=== PATIENT | female | born 1945 | race Caucasian/White ===

== ENCOUNTER → 2017-01-03 | Outpatient (CLI) | payer MEDICARE, BC ==
--- NOTE | 2017-01-07 12:18 | BD ---
EXAMINATION TYPE: MG DEXA axial skeleton. DATE OF EXAM: 01/03/2017 COMPARISON: 11.06.2012 CLINICAL HISTORY: Z78.0 POST MENOPAUSAL WITHOUT HRT Height: 64.5 Weight: 153 FRAX RISK QUESTIONS: Alcohol (3 or more units per day): NO Family History (Parent hip fracture): UNKNOWN Glucocorticoids (More than 3mos): YES (Ex: prednisone, prednisolone, methylprednisolone, dexamethasone, and hydrocortisone). History of Fracture in Adulthood: NO Secondary Osteoporosis: NO 1. Type 1 Diabetes: NO 2. Hyperthyroidism: NO 3. Menopause before 45: NO 4. Malnutrition: NO 5. Chronic liver disease: NO Rheumatoid Arthritis: NO Current Tobacco Use: NO RISK FACTORS HISTORY OF: Surgery to BOTH HIPS....THR BILAT When: AGE 48, AGE 58, Family History of Osteoporosis: NONE KNOWN Active: YES Diet low in dairy products/other sources of calcium: POSSIBLY A BIT LOW Postmenopausal woman: HYST AT 28 YRS, ONE OVARY LEFT, HORMONE CHANGES IN HER 50'S Lost more than 2 inches in height since high school: NO Hyperparathyroidism: NO Adrenal Insufficiency: NO MEDICATIONS: Prednisone or other steroids: INHALER, ASTHMA, ALLERGIES SYMBACORT How Lon YRS Additional Medications: BP MEDS, MULTIVIT WITH VIT D, REFLUX MEDS Additional History: REFLUX, HYPERTENSION, OSTEOARTHRITIS, HX OF BILAT THR'S EXAM MEASUREMENTS: Bone mineral densitometry was performed using the [employer] System. Bone mineral density as measured about the Lumbar spine is: ----- L1-L4(G/cm2): 1.224 T Score Values are as follows: ----- L1: -0.3 ----- L2: -0.8 ----- L3: 0.6 ----- L4: 1.5 ----- L1-L4: 0.4 Bone mineral density has: Decreased -1.9% since study of: 11.06.2012 PT HAS BILATERAL THR'S NO FRAX....NO HIPS SCANNED IMPRESSION: Normal (Values between +1 and -1 indicate normal bone mass). Consider repeating this study in 5 year s or sooner if there is some new clinical indication. FOR HER LUMBAR SPINE NOTE: T-SCORE=SD OF THE YOUNG ADULT MEAN.
--- NOTE | 2017-01-08 07:15 | MM ---
Reason for exam: screening (asymptomatic). Last mammogram was performed 1 year and 4 months ago. History: Patient is postmenopausal. Family history of breast cancer in maternal aunt. Physical Findings: A clinical breast exam by your physician is recommended on an annual basis and results should be correlated with mammographic findings. MG 3D Screening Mammo W/Cad Bilateral CC and MLO view(s) were taken. Prior study comparison: August 23, 2015, bilateral MG 3d screening mammo w/cad. November 06, 2012, bilateral digital screening mammo w/CAD. The breast tissue is heterogeneously dense. This may lower the sensitivity of mammography. No significant changes when compared with prior studies. ASSESSMENT: Benign, BI-RAD 2 RECOMMENDATION: Routine screening mammogram of both breasts in 1 year.
== END | disposition home or self-care (01) ==
LOC: RADMAMWWP 09:06
PROVIDERS: ATTEND Internal Medicine
DX: Z12.31 Encounter for screening mammogram for malignant neoplasm of breast (principal); Z78.0 Asymptomatic menopausal state
CPT/HCPCS: 77080; 77063; G0202

== ENCOUNTER → 2017-12-29 | Outpatient (CLI) | payer MEDICARE, BC ==
--- NOTE | 2017-12-30 12:40 | ECHOF ---
Referral Reason:I10 hypertension MEASUREMENTS -------- HEIGHT: 165.1 cm WEIGHT: 65.8 kg BP: 125/58 RVIDd: 2.7 cm (< 3.3) IVSd: 1.1 cm (0.6 - 1.1) LVIDd: 3.7 cm (3.9 - 5.3) LVPWd: 1.0 cm (0.6 - 1.1) IVSs: 1.5 cm LVIDs: 2.6 cm LVPWs: 1.4 cm LA Diam: 3.1 cm (2.7 - 3.8) LAESV Index (A-L): 17.10 ml/m Ao Diam: 2.8 cm (2.0 - 3.7) AV Cusp: 1.6 cm (1.5 - 2.6) MV EXCURSION: 14.056 mm (> 18.000) MV EF SLOPE: 41 mm/s (70 - 150) EPSS: 0.4 cm MV E Shane: 0.89 m/s MV DecT: 253 ms MV A Shane: 1.13 m/s MV E/A Ratio: 0.79 AV maxP.27 mmHg AV meanP.36 mmHg FINDINGS -------- Sinus rhythm. This was a technically good study. The left ventricular size is normal. There is borderline concentric left ventricular hypertrophy. Overall left ventricular systolic function is normal with, an EF between 60 - 65 %. The right ventricle is normal in size. Normal LA size by volume 22+/-6 ml/m2. The right atrium is normal in size. There is mild aortic valve sclerosis. There is mild aortic stenosis present. Peak/mean gradient a cross the Aortic Valve is 17.27mmHg / 7.36mmHg. The mitral valve leaflets are mildly thickened. There is trace to mild mitral regurgitation. The tricuspid valve appears structurally normal. Mild tricuspid regurgitation present. Trace/mild (physiologic) pulmonic regurgitation. The aortic root size is normal. Normal inferior vena cava with normal inspiratory collapse consistent with estimated right atrial pre ssure of 5 mmHg. There is no pericardial effusion. CONCLUSIONS -------- 1. Sinus rhythm. 2. This was a technically good study. 3. The left ventricular size is normal. 4. There is borderline concentric left ventricular hypertrophy. 5. Overall left ventricular systolic function is normal with, an EF between 60 - 65 %. 6. Normal LA size by volume 22+/-6 ml/m2. 7. There is mild aortic valve sclerosis. 8. There is mild aortic stenosis present. 9. Peak/mean gradient across the Aortic Valve is 17.27mmHg / 7.36mmHg. 10. The mitral valve leaflets are mildly thickened. 11. There is trace to mild mitral regurgitation. 12. The tricuspid valve appears structurally normal. 13. Mild tricuspid regurgitation present. 14. Trace/mild (physiologic) pulmonic regurgitation. 15. The aortic root size is normal. 16. Normal inferior vena cava with normal inspiratory collapse consistent with estimated right atrial pressure of 5 mmHg. 17. There is no pericardial effusion. CYTOPATHOLOGY TECHNOLOGIST: Anayeli Wilson RDCS
== END | disposition home or self-care (01) ==
LOC: RADECHMAIN 14:42
PROVIDERS: ATTEND Internal Medicine
DX: I07.1 Rheumatic tricuspid insufficiency (principal); I35.0 Nonrheumatic aortic (valve) stenosis; I05.9 Rheumatic mitral valve disease, unspecified; I38 Endocarditis, valve unspecified; I10 Essential (primary) hypertension
CPT/HCPCS: 93306

== ENCOUNTER 2018-01-28 08:43 | Day surgery (SDC) | payer MEDICARE, BC ==
[2018-01-26 15:11] VITALS: BMI 24.1
[~2018-01-28 08:43] MED LIST: HYDROmorphone 0.5 MG/0.5 ML SYRINGE IVP PRN; LACTATED RINGERS 1,000 ML IV SCH; LIDOCAINE 1% 20 ML VIAL (10MG/ML) FOR IV START INTRADERMA PRN
[2018-01-28 10:19] VITALS: TEMP 97.7
[2018-01-28] MEDS ORDERED: LIDOCAINE 1% INJ 10MG/ML (20 ML MDV) ONE (10:50)
[2018-01-28] MEDS ORDERED: PROPOFOL 10 MG/ML 20 ML VIAL IV ONE (10:50)
--- NOTE | 2018-01-28 11:10 | P.PCN ---
Date of Procedure: 01/28/18 Procedure(s) Performed: BRIEF HISTORY: Patient is a 72-year-old pleasant female, scheduled for an elective colonoscopy as a part of screening for colorectal neoplasia. PROCEDURE PERFORMED: Colonoscopy with biopsy. PREOPERATIVE DIAGNOSIS: Screening for colon cancer. IV sedation per Anesthesia. PROCEDURE: After informed consent was obtained, the patient, was brought into the endoscopy unit. IV sedation was administered by Anesthesia under continuous monitoring. Digital rectal examination was normal. Initially the Olympus CF- 160 flexible video colonoscope was then inserted in the rectum, gradually advanced into the cecum without any difficulty. Careful examination was performed as the scope was gradually being withdrawn. Ileocecal valve and the appendiceal orifice were visualized and appeared normal. Prep was excellent. Mucosa of the cecum was normal. In the ascending colon there was a 5 mm sessile polyp removed by cold biopsy. Rest of the ascending colon, transverse colon, descending colon, sigmoid colon, and rectum appeared normal. Retroflexion was performed in the rectum and no lesions were seen. The patient tolerated the procedure well. IMPRESSION: 5 mm ascending colon polyp status post removal by cold biopsy Scattered sigmoidal diverticulosis. . RECOMMENDATIONS: Findings of this examination were discussed with the patient as well as her family. She was advised to follow with the biopsy results. If the biopsy shows an adenoma, she can have a repeat colonoscopy in 5 years.
[2018-01-28 11:17] VITALS: RESP 18
[2018-01-28 11:26] VITALS: BP 118/59; PULSE 71
== END 2018-01-28 11:57 | disposition home or self-care (01) ==
LOC: ORWHC2ENDO 08:43
PROVIDERS: ATTEND Internal Medicine Gastroenterology
DX: Z12.11 Encounter for screening for malignant neoplasm of colon (principal); D12.2 Benign neoplasm of ascending colon; K57.30 Diverticulosis of large intestine without perforation or abscess without bleeding; K21.9 Gastro-esophageal reflux disease without esophagitis; Z79.82 Long term (current) use of aspirin; Z79.899 Other long term (current) drug therapy; I10 Essential (primary) hypertension; J45.909 Unspecified asthma, uncomplicated; Z79.51 Long term (current) use of inhaled steroids
CPT/HCPCS: 88305; 45380; J2001; J2704

== ENCOUNTER → 2018-06-08 | Outpatient (CLI) | payer MEDICARE ==
--- NOTE | 2018-06-08 17:39 | US ---
EXAMINATION TYPE: US carotid duplex BILAT DATE OF EXAM: 06/08/2018 COMPARISON: NONE CLINICAL HISTORY: R09.89 Left carotid bruit. EXAM MEASUREMENTS: RIGHT: Peak Systolic Velocity (PSV) cm/sec ----- Right CCA: 99.7 ----- Right ICA: 125.8 ----- Right ECA: 93.9 ICA/CCA ratio: 1.3 RIGHT: End Diastole cm/sec ----- Right CCA: 22.7 ----- Right ICA: 48.8 ----- Right ECA: 15.4 LEFT: Peak Systolic Velocity (PSV) cm/sec ----- Left CCA: 91.4 ----- Left ICA: 106.9 ----- Left ECA: 99.7 ICA/CCA ratio: 1.2 LEFT: End Diastole cm/sec ----- Left CCA: 30.5 ----- Left ICA: 26.7 ----- Left ECA: 17.2 VERTEBRALS (direction of flow): Right Vertebral: Antegrade Left Vertebral: Antegrade Rhythm: Normal Tortuous course to left internal carotid artery noted by technologist during real-time scanning. Mae scale images show no significant focal plaque at carotid bulb level bilaterally. Velocity measurement s in visualized portion of both internal carotid arteries is within normal limits. IMPRESSION: No hemodynamically significant stenosis is seen in either internal carotid artery. Criteria for Assigning % of Stenosis / Diameter reduction (Estimation based on the indirect measurements of the internal carotid artery velocities (ICA PSV). 1. Normal (no stenosis)=ICA PSV < 125 cm/s: ratio < 2.0: ICA EDV<40 cm/s. 2. Less than 50% stenosis=ICA PSV < 125 cm/s: ratio < 2.0: ICA EDV<40 cm/s. 3. 50 to 69% stenosis=ICA PSV of 125 to 230 cm/s: ration 2.0 ? 4.0: ICA EDV 40-100 cm/s. 4. Greater than 70% stenosis to near occlusion= ICA PSV > 230 cm/s: ratio > 4.0: ICA EDV > 100 cm/s. 5. Near occlusion= ICA PSV velocities may be low or undetectable: variable ratio and ICA EDV. 6. Total occlusion=unable to detect flow.
== END | disposition home or self-care (01) ==
LOC: RADUSWWP 15:11
PROVIDERS: ATTEND Internal Medicine
DX: R09.89 Other specified symptoms and signs involving the circulatory and respiratory systems (principal)
CPT/HCPCS: 93880

== ENCOUNTER → 2018-12-07 | Outpatient (CLI) | payer MEDICARE ==
[~2018-12-07] MED LIST changes: +DOBUTamine DRIP for NUC MED 500 MG in DEXTROSE/WATER 1 250ML.BAG IV ONE; -HYDROmorphone 0.5 MG/0.5 ML SYRINGE IVP PRN; -LACTATED RINGERS 1,000 ML IV SCH; -LIDOCAINE 1% 20 ML VIAL (10MG/ML) FOR IV START INTRADERMA PRN
--- NOTE | 2018-12-07 10:24 | P.STRESS ---
- Stress Test Note Stress Test Results/Findings: Exam Performed: dobutamine stress echo Exam Date: 12/07/18 Reason for Exam: CHEST PAIN / HTN Height: 5 ft 5 in Weight: 68.039 kg Protocol: DSE Stage: 3 Duration of Exercise: 6:30 Resting Heart Rate: 64 Resting Blood Pressure: 136/56 Maximum Achieved Heart Rate: 126 Maximum Achieved Blood Pressure: 154/54 85% PMHR: 125 100% PMHR: 147 METS: NA Technologist Comment: Stress Test Results/Findings: Baseline heart rate 64 beats a minute, Baseline blood pressure 136/56. Millimeters of mercury Twelve-lead ECG at baseline showed sinus rhythm with normal ST segments normal [place] narrow QRS Patient received dobutamine infusion per protocol up to 30 mics He can't 126 beats a minute peak blood pressure 154/54 mmHg There is an minimal upsloping ST depression of 0.5 mm no arrhythmias noted Baseline 2-D echo images showed normal LV systolic function The dobutamine there was a stepwise increment in overall LV contractility without development of any wall motion abnormalities @Recovery regional global LV systolic function remained normal Impression no ECG or echocardiographic evidence for ischemia on dobutamine stress echo
--- NOTE | 2018-12-07 12:56 | ECHOS ---
Stress Test Results/Findings: Exam Performed: dobutamine stress echo Exam Date: 12/07/18 Reason for Exam: CHEST PAIN / HTN Height: 5 ft 5 in Weight: 68.039 kg Protocol: DSE Stage: 3 Duration of Exercise: 6:30 Resting Heart Rate: 64 Resting Blood Pressure: 136/56 Maximum Achieved Heart Rate: 126 Maximum Achieved Blood Pressure: 154/54 85% PMHR: 125 100% PMHR: 147 METS: NA Technologist Comment: Stress Test Results/Findings: Baseline heart rate 64 beats a minute, Baseline blood pressure 136/56. Millimeters of mercury Twelve-lead ECG at baseline showed sinus rhythm with normal ST segments normal [place] narrow QRS Patient received dobutamine infusion per protocol up to 30 mics He can't 126 beats a minute peak blood pressure 154/54 mmHg There is an minimal upsloping ST depression of 0.5 mm no arrhythmias noted Baseline 2-D echo images showed normal LV systolic function The dobutamine there was a stepwise increment in overall LV contractility without development of any wall motion abnormalities @Recovery regional global LV systolic function remained normal Impression no ECG or echocardiographic evidence for ischemia on dobutamine stress echo Additional CC's: Jad ANDERS
== END | disposition home or self-care (01) ==
LOC: RADNMMAIN 08:52
PROVIDERS: ATTEND Internal Medicine
DX: I10 Essential (primary) hypertension (principal); R07.89 Other chest pain
CPT/HCPCS: 93351; J1250

== ENCOUNTER → 2019-03-09 | Outpatient (CLI) | payer MEDICARE ==
--- NOTE | 2019-03-09 10:35 | BD ---
EXAMINATION TYPE: Axial Bone Density DATE OF EXAM: 03/09/2019 COMPARISON: 2017 CLINICAL HISTORY: post menopausal Height: 5'5 Weight: 150 FRAX RISK QUESTIONS: Secondary Osteoporosis: Rheumatoid Arthritis: y RISK FACTORS HISTORY OF: Surgery to /Hip(right/left): velvet total hips When: 2013 Postmenopausal woman: y MEDICATIONS: Additional Medications: blood pressure, acid reflux, Additional History: EXAM MEASUREMENTS: Bone mineral densitometry was performed using the [employer] System. Bone mineral density as measured about the Lumbar spine is: ----- L1-L4(G/cm2): 1.193 T Score Values are as follows: ----- L2: -1.4 ----- L3: 0.5 ----- L4: 1.8 ----- L1-L4:0.1 Bone mineral density has: Decreased -1.4% since study of: 01/03/2017 Bone mineral density about the L Wrist (g/cm2): 0.487 T Score values are as follows: -----Dist. R+U: -2.5 -----Prox. R+U: -2.5 -----Radius total: -3.1 IMPRESSION: Osteopenia (T Score between -2.5 and -1). There is slightly increased risk of fracture and the patient may be considered for treatment. Re-Screen 2-5 years. NOTE: T-SCORE=SD OF THE YOUNG ADULT MEAN.
--- NOTE | 2019-03-11 10:00 | MM ---
Reason for exam: screening (asymptomatic). Last mammogram was performed 2 years and 2 months ago. History: Patient is postmenopausal. Family history of breast cancer in maternal aunt. Took hormonal contraceptives for 7 years. Physical Findings: A clinical breast exam by your physician is recommended on an annual basis and results should be correlated with mammographic findings. MG 3D Screening Mammo W/Cad Bilateral CC and MLO view(s) were taken. Prior study comparison: January 03, 2017, bilateral MG 3d screening mammo w/cad. August 23, 2015, bilateral MG 3d screening mammo w/cad. The breast tissue is heterogeneously dense. This may lower the sensitivity of mammography. There is no discrete abnormality. No significant changes when compared with prior studies. ASSESSMENT: Negative, BI-RAD 1 RECOMMENDATION: Routine screening mammogram of both breasts in 1 year.
== END | disposition home or self-care (01) ==
LOC: RADMAMWWP 09:16
PROVIDERS: ATTEND Internal Medicine
DX: Z12.31 Encounter for screening mammogram for malignant neoplasm of breast (principal); M85.80 Other specified disorders of bone density and structure, unspecified site; Z78.0 Asymptomatic menopausal state
CPT/HCPCS: 77063; 77067; 77080

== ENCOUNTER → 2020-07-20 | Outpatient (CLI) | payer MEDICARE ==
[2020-07-20 13:42] LABS: HGB 11.8 gm/dL (11.4-16.0); MCH 30.9 pg (25.0-35.0); MCHC 32.8 g/dL (31.0-37.0); MCV 94.3 fL (80.0-100.0); Mean Platelet Volume 6.2; Platelet Count 414 k/uL (150-450); RBC 3.82 m/uL (3.80-5.40); RDW 12.9 % (11.5-15.5); WBC 6.2 k/uL (3.8-10.6)
[2020-07-20 13:45] LABS: Appearance,Urine Clear (Clear); Bilirubin,Urine Negative (Negative); Blood,Urine Negative (Negative); Budding Yeast,Urine Rare /hpf; Color,Urine Light Yellow; Glucose,Urine (UA) Negative (Negative); Ketones,Urine Negative (Negative); Leukocyte Esterase,Urine Large (Negative); Mucus,Urine Rare /hpf; Nitrite,Urine Negative (Negative); Protein,Urine Negative (Negative); RBC,Urine <1 /hpf (0-5); Specific Gravity,Urine 1.008 (1.001-1.035); Squamous Epithelial Cell,Urine <1 /hpf (0-4); Urobilinogen,Urine <2.0 mg/dL (<2.0); WBC,Urine 22 /hpf (0-5)
[2020-07-20 13:57] LABS: Albumin 4.4 g/dL (3.5-5.0); Potassium 4.2 mmol/L (3.5-5.1); Total Bilirubin 0.3 mg/dL (0.2-1.3); Total Protein 7.3 g/dL (6.3-8.2)
[2020-07-20 13:58] LABS: INR 0.9 (<1.2); Partial Thromboplastin Time 24.7 sec (22.0-30.0); Prothrombin Time 10.2 sec (9.0-12.0)
== END | disposition home or self-care (01) ==
LOC: LABPAT 12:34
PROVIDERS: ATTEND Orthopaedic Surgery
DX: Z01.818 Encounter for other preprocedural examination (principal); Z79.01 Long term (current) use of anticoagulants; M17.11 Unilateral primary osteoarthritis, right knee
CPT/HCPCS: 36415; 80053; 81001; 85027; 85610; 85730; 87070

== ENCOUNTER 2020-07-28 10:48 | Day surgery (SDC) | payer MEDICARE ==
[2020-07-24 12:03] VITALS: BMI 24.6
[~2020-07-28 10:48] MED LIST changes: +ACETAMINOPHEN TAB 500 MG TAB PO PRN; -DOBUTamine DRIP for NUC MED 500 MG in DEXTROSE/WATER 1 250ML.BAG IV ONE; +HYDROmorphone 0.5 MG/0.5 ML SYRINGE IVP PRN; +MELOXICAM 7.5 MG TAB PO PRN; +MIDAZOLAM 2 MG/2 ML VIAL IV PRN; +ROPIVACAINE 246.25 MG, EPINEPHrine 0.5 MG, KETOROLAC 30 MG, cloNIDine HCL/PF 80 MCG, WA... MISCELLANE PRN; +ROPIVACAINE/EPI/CLONIDINE/KET 50 ML SYRINGE MISCELLANE PRN; +TRANEXAMIC ACID 1,000 MG in SODIUM CHLORIDE 0.9% 100 ML IVPB PRN
[2020-07-28] MEDS: LACTATED RINGERS 1,000 ML IV SCH (12:37)
[2020-07-28] MEDS ORDERED: LIDOCAINE 1% (10MG/ML) FOR IV START INTRADERMA ONE (12:37)
[2020-07-28] MEDS: ONDANSETRON 4 MG/2 ML VIAL IVP PRN ×3 (12:38→16:45)
[2020-07-28] MEDS ORDERED: PROPOFOL 10 MG/ML 20 ML VIAL IV ONE (13:57)
[2020-07-28] MEDS ORDERED: PHENYLEPHRINE-0.9% NACL SYG 1,000 MCG/10 ML SYRINGE ONE (13:57)
[2020-07-28] MEDS ORDERED: ROCURONIUM 10 MG/ML (5 ML VIAL) IV ONE (13:57)
[2020-07-28] MEDS ORDERED: MIDAZOLAM 2 MG/2 ML VIAL ONE (13:57)
[2020-07-28] MEDS ORDERED: NEOSTIGMINE 1 MG/ML 10 ML VIAL ONE (13:57)
[2020-07-28] MEDS ORDERED: GLYCOPYRROLATE 0.2 MG/ML 2 ML VIAL ONE (13:57)
[2020-07-28] MEDS ORDERED: LIDOCAINE 1% INJ 10MG/ML (20 ML MDV) ONE (13:57)
[2020-07-28] MEDS ORDERED: fentaNYL (PF) 50 MCG/ML 2 ML AMP ONE (13:57)
[2020-07-28] MEDS ORDERED: SUCCINYLCHOLINE CHLORIDE 100 MG/5 ML SYR IV ONE (13:57)
[2020-07-28] MEDS ORDERED: ROPIVACAINE 0.2%-NS ON-Q PUMP 1,090 MG, EMPTY PAIN BALL 1 EACH MISCELLANE PRN (14:13)
--- NOTE | 2020-07-28 14:14 | P.ANPRN ---
Procedure Note - Anesthesia - Nerve Block Performed Right Adductor Canal Time Out Performed: Yes (:31) Date of Procedure: 07/28/20 Procedure Start Time: Procedure Stop Time: :47 Location of Patient: PreOp Indication: Acute Post-Operative Pain, Requested by Surgeon (Dr Maza) Sedation Type: Sedate with meaningful contact maintained Preparation: Sterile Prep, Sterile Dressing Position: Supine Catheter: Indwelling Needle Types: Pajunk Needle Gauge: 21 Ultrasound used to visualize needle placement: Yes Ultrasound used to observe medication spread: Yes Injectate: 0.5% Ropivacaine (see comment for volume) (20cc) Blood Aspirated: No Pain Paresthesia on Injection Noted: No Resistance on Injection: Normal Image Stored and Saved: Yes Events: Uneventful and Well Tolerated
[2020-07-28] MEDS ORDERED: ceFAZolin 3,000 MG in SODIUM CHLORIDE 0.9% IRRIGATIO 3,000 ML IRRIGATION ONE (14:59)
--- NOTE | 2020-07-28 15:58 | P.OP ---
Date of Procedure: 07/28/20 Procedure(s) Performed: PREOPERATIVE DIAGNOSIS: Right knee severe osteoarthritis with genu varum POSTOPERATIVE DIAGNOSIS: Right knee severe osteoarthritis with genu varum OPERATION: Right knee cemented total replacement arthroplasty. ANESTHESIA: Spinal ESTIMATED BLOOD LOSS: 100 ml. BOTTLE HOP: Dottie Butt PA-C (assistance with: patient positioning, retraction, exposure, hemostasis, leg positioning, implantation, irrigation, closure, dressing) COMPLICATIONS: Anterior tibial fracture, stable to C-arm imaging and stress COMPONENTS IMPLANTED: Journey II BCS total knee system from [employer] [facility], [facility] INDICATIONS: Mrs. Cat is a 75 year old female with a history of right knee osteoarthritis. Valgus knee deformity is present to a significant degree. The patient's knee is end-stage, and conservative management has failed. The operation of knee replacement has been discussed at length in the office, as well as potential risks and complications. These are inclusive of, but not limited to: bleeding, infection, scarring, discomfort, blood vessel and nerve damage, need for further surgery, failure to relieve symptoms, persistence, recurrence, or worsening of problems, loosening, dislocation, wear, blood clot, pulmonary embolism, , gait dysfunction, stiffness, and other risks as discussed in the office. The patient elects to proceed and the consent form has been signed. PROCEDURE: The patient was taken to the operating room and positioned on the operating room table in the supine position. Anesthesia was initiated. Care was taken to make sure that all pressure points were adequately padded. The operative lower extremity was prepped and draped in the usual aseptic fashion using ChloraPrep. Ioban drape was used for the case and the patient received intravenous antibiotics within one hour of the incision. A pneumotourniquet and leg roman were used for the case. The limb was exsanguinated with an Esmarch bandage and the tourniquet was inflated to 350 mmHg. Time-out was called confirming the patient's identity, side, procedure and administration of antibiotics and tranexamic acid. The incision was then created midline directly over the right knee, carried down through skin and into the subcutaneous tissues and down to fascia. Full thickness subcutaneous medial flap was developed. Medial parapatellar arthrotomy was performed and the interior of the knee was inspected. There was end-stage osteoarthritis of the knee with a mild to moderate genu valgum type deformity. The fat pad was excised and proximal medial release on the tibia was completed using meticulous dissection and a curved osteotome. The anterior cruciate ligament was taken down. Note was made of significant attrition of the anterior and significant degenerative appearance of the cruciate ligaments. The exposure was excellent. The knee was flexed 90 degrees and the patella was everted. The [employer] pre- made distal cutting block was attached and pinned into position. The planned cut was analyzed visually and with the alignment lina and found to be satisfactory without the need for any adjustment. The oscillating saw was then used to make the distal femoral cut and make the alignment holes for the 5 in 1 block. Noted was fairly significant bone deficiency with osteopenia , as evidenced by the ease of the saw blade cutting through the distal femur. This cut was confirmed to be flat with the flat end of an osteotome. The 5 in 1 block was then used to create the anterior posterior condylar resections and the chamfer cuts. The retractors were placed around the tibia and the tibial surface was addressed. The [employer] pre-made guide was placed onto the exposed tibial surface and pinned into position to omayra the rotational alignment. The alignment of the guide was checked for depth of plannned resection, slope, and varus valgus. Guide was confirmed to be in good position and the tibial cut was then created with protection of the posterior neurovascular structures and the collateral ligaments. The tibial cut surface was removed and sized. Again, note was made of easy passage of the saw during the proximal tibial cut, indicating significant osteopenia. Spacer block technique was then used to confirm that the flexion and extension gaps were equal. Soft tissue releases and adjustment of the tibial and/or femoral cuts were made, as necessary, until the gaps were equal. This included release of the posterior cruciate ligament, which was excessively tight in this patient. Prior to placing trial components, anesthetic solution consisting of ropivicaine with epinephrine, ketorolac, and clonidine was injected carefully and methodically in a grid pattern using aspiration technique into the soft tissue around the knee circumferentially, starting with the deeper tissues first and progressing to fascia, and then finally the skin/subcutaneous tissue. Particular care was taken when injecting the posterior capsule, with avoidance of the midline posterior area. The trial components were inserted. The tibial tray was allowed to self center and the patella was noted to track very well. The position of the tibial component was marked and noted to be nearly exactly aligned with the pre-drilled holes from the [employer] guide. The tibia was then finished for a stemmed tibial component. Patellar resurfacing was performed using a reamer. The size of the required patellar component was estimated and the patellar surface was then reamed down to a residual thickness which would recreate the [place] thickness with the component. The exact placement of the patellar component was adjusted for position based on preoperative x-rays and intraoperative findings. Trial components were removed and the cut surfaces of the bone were pulse lavaged thoroughly and dried. Cement was mixed on the back table and applied to the final components. Cement was then applied to the tibial surface and pressurized into the surface using finger pressurization technique. The tibial component was then applied and excess cement was removed after it was impacted securely and noted to be flush with the cut surface. In similar fashion, the cement was applied to the cut femoral surface, pressurized in using finger pressurization and the component was impacted into place. Excess cement was removed. The polyethylene spacer was then implanted and locked into position. The patellar component was then applied in similar technique and a patellar clamp was used to hold the patella in place as the cement hardened. Once the cement had fully hardened, the knee was reinspected. Any other cement extrusion was removed and final kinematic testing showed range of motion from 0 to 130 degrees with excellent stability, both medially and laterally and appropriate alignment of the leg. Patellar tracking was excellent. The knee was then thoroughly pulse lavaged with normal saline. The tourniquet was deflated and hemostasis was obtained with electrocautery and IV tranexamic acid, 1 g given at the start of the operation and 1 g at the start of closure. During closure, it was noted that there was a vertical oriented nondisplaced fracture of the proximal tibia just to the medial side of the tibial tubercle. C-arm imaging was called in to assess the fracture. The fracture was not noted on C-arm imaging in any plane and the alignment of the component appeared to be satisfactory. The fracture was completely stable to palpation and interrogation using a hemostat. The tibial component was also completely stable to interrogation with range of motion, varus valgus stress, and attempted shuck in all directions. Considering the stability of this fracture, internal fixation was considered but I did not feel it was necessary. Plan of treatment for this fracture will include toe-touch weightbearing for approximately 6-8 weeks to allow the fracture to heal with likely delay of physical therapy for 2 weeks and knee immobilizer with removal of the immobilizer on a daily basis for gravity assisted range of motion exercises. No passive stretching of the knee will be allowed for 6-8 weeks. We will also plan on following the fracture with x-rays on a regular basis. Closure was with #2 Ethibond in the fascia/capsule and supplemented with #2 Quill, 2-0 Vicryl suture was used for the subcutaneous tissues and 3-0 Quill for the skin. Dermabond/Steri-Strips were then applied. A lightly compressive dressing was applied using Webril and an Johnny wrap. The patient was then transferred to stretcher and taken to the recovery room in stable condition. Sponge and needle counts were correct.
--- NOTE | 2020-07-28 16:03 | XR ---
Fluoroscopy HISTORY: Right knee replacement 6 seconds fluoroscopy time supplied to the referring clinician. 2 intraoperative C-arm images docume nt the procedure. See dictated report from orthopedic surgery.
[2020-07-28] MEDS ORDERED: TEMAZEPAM 15 MG CAP PO PRN (16:11)
[2020-07-28] MEDS ORDERED: HYDROmorphone 0.2 MG/1 ML SYRINGE IVP PRN (16:11)
[2020-07-28] MEDS ORDERED: MAGNESIUM HYDROXIDE 2,400 MG/10 ML CUP PO PRN (16:11)
[2020-07-28] MEDS ORDERED: NALOXONE 0.4 MG/ML 1 ML VIAL IV PRN (16:11)
[2020-07-28] MEDS ORDERED: HYDROmorphone 0.5 MG/0.5 ML SYRINGE IVP PRN ×2 (16:11)
[2020-07-28] MEDS ORDERED: NA PHOS,M-B/NA PHOS,DI-BA 133 ML ENEMA RECTAL PRN (16:11)
[2020-07-28] MEDS ORDERED: bisacodyL 10 MG SUPP RECTAL PRN (16:11)
[2020-07-28] MEDS ORDERED: ONDANSETRON 4 MG/2 ML VIAL IVP PRN (16:11)
[2020-07-28] MEDS ORDERED: HYDROcodone/APAP 5-325MG 1 EACH TAB PO PRN ×2 (16:11)
[2020-07-28] MEDS ORDERED: LACTATED RINGERS 1,000 ML IV ONE (16:21)
--- NOTE | 2020-07-28 17:22 | XR ---
Result: History: Postoperative knee. Comparison: None available. Technique: 2 views of the right knee. Findings: There are postsurgical changes of total knee arthroplasty with patellar resurfacing without evidence of immediate hardware complication. No acute fracture or dislocation of is seen. There are postsurgi marlene changes about the knee soft tissues with joint effusion. Impression: Expected post surgical changes of right total knee arthroplasty.
[2020-07-28] MEDS: ASPIRIN 81 MG PO SCH (20:10)
[2020-07-28] MEDS ORDERED: SENNOSIDES-DOCUSATE SODIUM 1 EACH TAB PO SCH (21:00)
--- NOTE | 2020-07-29 00:34 | P.CONS ---
History of Present Illness - Reason for Consult Consult date: 07/28/20 - History of Present Illness Patient is a 75-year-old female with a PMH of hypertension and COPD who was admitted for an elective right total knee replacement. The patient underwent the procedure earlier today and will immediate postoperative consultations. She was seen postoperatively on the surgical unit. She reported excellent control of her pain at the time, currently at a 0 out of 10. The patient notes that she had not been out of bed as of yet and had not passed urine or flatness. She denied additional complaints. Denied fever, chills, chest pain, shortness of breath, nausea, vomiting, abdominal pain, diarrhea. Reports compliance with all her medications at home. Review of Systems Pertinent positives and negatives as discussed in HPI, a complete review of systems was performed and all other systems are negative. Past Medical History Past Medical History: Asthma, CVA/TIA, GERD/Reflux, Hypertension, Osteoarthritis (OA) Additional Past Medical History / Comment(s): hx migraines, TIA 25 yrs ago-no residual effects, irregular heartbeat, seasonal allergies, "weak kidney", History of Any Multi-Drug Resistant Organisms: None Reported Past Surgical History: Appendectomy, Hysterectomy, Joint Replacement Additional Past Surgical History / Comment(s): velvet hip replacement(left x 2), rt shoulder rotator cuff, velvet cataracts Past Anesthesia/Blood Transfusion Reactions: No Reported Reaction Past Psychological History: No Psychological Hx Reported Smoking Status: Never smoker Past Alcohol Use History: Occasional Past Drug Use History: None Reported - Past Family History Mother Family Medical History: No Reported History Father Family Medical History: Cancer Additional Family Medical History / Comment(s): skin Medications and Allergies Home Medications Medication Instructions Recorded Confirmed Type Aspirin 81 mg PO DAILY 01/26/18 07/24/20 History Budesonide/Formoterol Fumarate 1 puff INHALATION DAILY 01/26/18 07/28/20 History [Symbicort 80-4.5 Mcg Inhaler] Enalapril/Hydrochlorothiazide 1 each PO DAILY 01/26/18 07/24/20 History [Vaseretic 5-12.5 mg] Omeprazole 20 mg PO QAM 01/26/18 07/24/20 History Loratadine-Pseudoeph 10-240 mg 1 tab PO DAILY 07/24/20 07/28/20 History [Claritin-D 24 Hour] Multivitamins, Thera [Multivitamin 1 tab PO DAILY 07/24/20 07/24/20 History (formulary)] Aspirin [Adult Low Dose Aspirin EC] 81 mg PO BID #1 tablet. 07/28/20 Rx HYDROcodone/APAP 7.5-325MG [[place] 1 tab PO Q6HR PRN #28 tab 07/28/20 Rx 7.5-325] Meloxicam [Mobic] 1 - 2 tab PO DAILY PRN #30 tab 07/28/20 Rx Ondansetron Odt [Zofran Odt] 4 mg PO Q8HR PRN #14 tab 07/28/20 Rx Sennosides-Docusate Sodium 1 tab PO BID #60 tablet 07/28/20 Rx [Senokot-S] Allergies Allergy/AdvReac Type Severity Reaction Status Date / Time No Known Allergies Allergy Verified 07/28/20 11:56 Physical Exam Vitals: Vital Signs Temp Pulse Pulse Resp BP Pulse Ox 07/28/20 19:26 97.3 F L 72 16 114/64 96 07/28/20 18:30 73 111/61 100 07/28/20 18:10 69 119/57 100 07/28/20 17:55 68 123/61 100 07/28/20 17:40 70 114/65 97 07/28/20 17:30 98.1 F 73 16 126/59 96 07/28/20 16:58 71 16 108/56 95 07/28/20 16:44 68 16 118/59 99 07/28/20 16:30 67 16 118/54 99 07/28/20 16:15 69 16 112/57 99 07/28/20 15:57 97.6 F 79 16 135/61 99 07/28/20 13:52 61 18 146/68 99 07/28/20 12:10 98.2 F 67 18 166/74 97 Intake and Output 07/28/20 07/28/20 07/28/20 06:59 14:59 22:59 Intake Total 1051 500 Output Total 50 Balance 1051 450 Intake: IV 1051 0 Oral 500 Output: Estimated Blood Loss 50 Other: Weight 67.2 kg 67.2 kg General: non toxic, no distress, appears at stated age, normal weight Derm: no unusual rashes/lesions no unusual ecchymoses, warm, dry Head: atraumatic, normocephalic, symmetric Eyes: EOMI, no lid lag, anicteric sclera, pupils equal round reactive to light ENT: Nose and ears atraumatic, no thrush, no pharyngeal erythema Neck: No thyromegaly, no cervical lymphadenopathy, trachea midline, supple Mouth: no lip lesion, mucus membranes moist Cardiovascular: S1S2 reg, grade 4 systolic murmur appreciated, positive posterior tibial pulse bilateral, no edema, capillary refill less than 2 seconds Lungs: CTA bilateral, no rhonchi, no rales , no accessory muscle use Abdominal: soft, nontender to palpation, no guarding, no appreciable orga nomegaly, normal bowel sounds Ext: no gross muscle atrophy, muscle strength 5 out of 5 in all except RLE due to pain, no contractures, R knee brace in place Neuro: CN II-XI grossly intact, light touch intact all 4 extremities, finger to nose within normal limits, Psych: Alert, oriented, appropriate affect Assessment and Plan Plan: S/p R total knee replacement -Management including pain control as per the surgery service Chronic conditions: Hypertension, COPD -Continue with home medications
[2020-07-29] MEDS: LACTATED RINGERS 1,000 ML IV SCH ×3 (03:24→05:50)
[2020-07-29] MEDS ORDERED: PANTOPRAZOLE 40 MG TABLET PO SCH (07:30)
[2020-07-29 08:06] VITALS: BP 126/69; PULSE 80; RESP 16; TEMP 98.9
[2020-07-29] MEDS: ASPIRIN 81 MG PO SCH (08:32)
[2020-07-29 09:00] LABS: Basophils # (A) 0.04 X 10*3/uL (0.00-0.10); Basophils % (A) 0.5 %; Eosinophils # (A) 0.04 X 10*3/uL (0.04-0.35); Eosinophils % (A) 0.5 %; HCT 28.3 % (37.2-46.3); HGB 9.3 g/dL (12.0-15.0); Lymphocytes # (A) 1.04 X 10*3/uL (0.90-5.00); Lymphocytes % (A) 11.9 %; MCH 30.5 pg (27.0-32.0); MCHC 32.9 g/dL (32.0-37.0); MCV 92.8 fL (80.0-97.0); Mean Platelet Volume 8.4 fL (9.5-12.2); Monocytes # (A) 0.63 X 10*3/uL (0.20-1.00); Monocytes % (A) 7.2 %; Neutrophils # (A) 6.98 X 10*3/uL (1.80-7.70); Neutrophils % (A) 79.4 %; Platelet Count 306 X 10*3/uL (140-440); RBC 3.05 X 10*6/uL (4.10-5.20); RDW 13.2 % (11.5-14.5); WBC 8.77 X 10*3/uL (4.50-10.00)
[2020-07-29] MEDS ORDERED: hydroCHLOROthiazide 12.5 MG CAP PO SCH (09:00)
[2020-07-29] MEDS ORDERED: lisinopriL 10 MG TAB PO SCH (09:00)
[2020-07-29] MEDS ORDERED: SYMBICORT 80-4.5 MCG INHALER INHALATION SCH (09:00)
[2020-07-29] MEDS ORDERED: MELOXICAM 7.5 MG TAB PO SCH (09:00)
--- NOTE | 2020-07-29 10:52 | P.DS ---
Providers Expected date of discharge: 07/29/20 Attending physician: Ike Maza Consults: 07/28/20 16:11 Consult Physician Routine Consulting Provider: Azam Nobles Consult Reason/Comments: Medical management Do you want consulting provider notified?: Yes Primary care physician: Rupa Hooker MD - Discharge Diagnosis(es) (1) Osteoarthritis of right knee Current Visit: Yes Status: Acute (2) S/P total knee arthroplasty Current Visit: Yes Status: Acute Hospital Course: This is a 75-year-old female with known history of degenerative arthritis of the right knee. The patient presented for evaluation as an outpatient. After discussion and consideration patient elects to proceed with total knee arthroplasty. The patient is seen preoperatively by Dr. Maza and medically cleared for surgery by their primary care physician. Patient is admitted to [facility] on 07/28/2020 for total knee arthroplasty. A nondisplaced fracture of the proximal tibia was noted during the patient's surgery. The patient is doing well postoperatively. Labs and vital signs are stable on day of discharge. On day of discharge patient's knee incision is healing well. There is minimal erythema. There is no drainage noted at this time. There is minimal soft tissue swelling to the knee. Patient has full foot and ankle motion without difficulty or pain. Calf is soft and nontender to palpation. Neurovascular status to the right lower extremity is intact. Patient is discharged home in good condition. Please see med rec for accurate list of home medications. Plan - Discharge Summary Discharge Rx Participant: Yes New Discharge Prescriptions: New Aspirin [Adult Low Dose Aspirin EC] 81 mg PO BID #1 tablet. Meloxicam [Mobic] 1 - 2 tab PO DAILY PRN #30 tab PRN Reason: Pain HYDROcodone/APAP 7.5-325MG [[place] 7.5-325] 1 tab PO Q6HR PRN #28 tab PRN Reason: Pain Sennosides-Docusate Sodium [Senokot-S] 1 tab PO BID #60 tablet Ondansetron Odt [Zofran Odt] 4 mg PO Q8HR PRN #14 tab PRN Reason: Nausea HYDROcodone/APAP 7.5-325MG [[place] 7.5-325] 1 tab PO Q6H PRN #28 tab PRN Reason: Pain No Action Aspirin 81 mg PO DAILY Omeprazole 20 mg PO QAM Enalapril/Hydrochlorothiazide [Vaseretic 5-12.5 mg] 1 each PO DAILY Budesonide/Formoterol Fumarate [Symbicort 80-4.5 Mcg Inhaler] 1 puff INHALATION DAILY Loratadine-Pseudoeph 10-240 mg [Claritin-D 24 Hour] 1 tab PO DAILY Multivitamins, Thera [Multivitamin (formulary)] 1 tab PO DAILY Discharge Medication List Aspirin 81 mg PO DAILY 01/26/18 [History] Budesonide/Formoterol Fumarate [Symbicort 80-4.5 Mcg Inhaler] 1 puff INHALATION DAILY 01/26/18 [History] Enalapril/Hydrochlorothiazide [Vaseretic 5-12.5 mg] 1 each PO DAILY 01/26/18 [History] Omeprazole 20 mg PO QAM 01/26/18 [History] Loratadine-Pseudoeph 10-240 mg [Claritin-D 24 Hour] 1 tab PO DAILY 07/24/20 [History] Multivitamins, Thera [Multivitamin (formulary)] 1 tab PO DAILY 07/24/20 [History] Aspirin [Adult Low Dose Aspirin EC] 81 mg PO BID #1 tablet. 07/28/20 [Rx] HYDROcodone/APAP 7.5-325MG [[place] 7.5-325] 1 tab PO Q6HR PRN #28 tab 07/28/20 [Rx] Meloxicam [Mobic] 1 - 2 tab PO DAILY PRN #30 tab 07/28/20 [Rx] Ondansetron Odt [Zofran Odt] 4 mg PO Q8HR PRN #14 tab 07/28/20 [Rx] Sennosides-Docusate Sodium [Senokot-S] 1 tab PO BID #60 tablet 07/28/20 [Rx] HYDROcodone/APAP 7.5-325MG [[place] 7.5-325] 1 tab PO Q6H PRN #28 tab 07/29/20 [Rx] Follow up Appointment(s)/Referral(s): Dottie Butt PAC [PHYSICIAN LEAD PAINTER] - 2 Weeks Rupa Hokoer MD [Primary Care Provider] - 1 Week Patient Instructions/Handouts: *Surgery [facility] - (O&A) Arthroscopic Knee Post-Op Instructions Activity/Diet/Wound Care/Special Instructions: Hold PT for 2 weeks post op. May do gravity assist knee flexion only. Knee immobilizer when up and when sleeping. Remove to shower. May shower 48h post op. Leave Optifoam dressing intact 10 days post op. Discharge Disposition: HOME SELF-CARE
--- NOTE | 2020-07-29 11:40 | P.PN ---
Subjective Progress Note Date: 07/29/20 Patient is doing well today. She was up with physical therapy with no difficulty. Pain is well controlled. Objective - Vital Signs Vital signs: Vital Signs Temp 98.9 F 07/29/20 08:05 Pulse 80 07/29/20 08:05 Resp 16 07/29/20 08:05 BP 126/69 07/29/20 08:05 Pulse Ox 96 07/29/20 08:05 Intake & Output 07/28/20 07/29/20 07/29/20 18:59 06:59 18:59 Intake Total 1051 500 Output Total 50 Balance 1001 500 Weight 67.2 kg Intake: IV 1051 Oral 500 Output: Estimated Blood Loss 50 Other: # Voids 1 - Exam General: The patient is awake and alert, in no distress Eye: there is normal conjunctiva bilaterally. Neck: The neck is supple, there is no JVD. Cardiovascular: Normal S1-S2, no S3-S4, no murmurs. Respiratory: Lungs clear to auscultation bilaterally Gastrointestinal: Abdomen is soft, nontender Musculoskeletal: There is no pedal edema. Neurological:. Speech is normal. Skin: Skin is warm and dry - Labs CBC & Chem 7: 07/29/20 05:30 Labs: Abnormal Lab Results - Last 24 Hours (Table) 07/29/20 Range/Units 05:30 RBC 3.05 L (4.10-5.20) X 10*6/uL Hgb 9.3 L (12.0-15.0) g/dL Hct 28.3 L (37.2-46.3) % MPV 8.4 L (9.5-12.2) fL Assessment and Plan Assessment: This is a 75-year-old female with past medical history significant for COPD and essential hypertension was admitted to the hospital for elective right total knee arthroplasty. She is postoperative day #1. She is doing fairly well postoperatively. Pain is well controlled. DVT prophylaxis with aspirin twice daily per orthopedic protocol. Her other medical problems including hype rtension and COPD are stable. Continue home medication. Patient is cleared for discharge home.
== END 2020-07-29 12:54 | disposition home or self-care (01) ==
LOC: OR 10:48 → 4SSUR 16:02 → OR 07-29 12:54
PROVIDERS: ATTEND Orthopaedic Surgery
DX: M17.11 Unilateral primary osteoarthritis, right knee (principal); M21.161 Varus deformity, not elsewhere classified, right knee; I10 Essential (primary) hypertension; M51.36 Other intervertebral disc degeneration, lumbar region; M54.16 Radiculopathy, lumbar region; Z79.899 Other long term (current) drug therapy; Z82.49 Family history of ischemic heart disease and other diseases of the circulatory system; Z83.3 Family history of diabetes mellitus; Z96.641 Presence of right artificial hip joint
CPT/HCPCS: 94640; 97161; 64448; 76942; 85025; 73560; 27447; C1713; C1776; J2250; J0171; J2710; J0690 ×3; J2405; J2001; J3010; J1885; J2795 ×2; J2370; J0330; J2704; J0735; 88300

== ENCOUNTER → 2020-09-15 | Outpatient (CLI) | payer MEDICARE ==
--- NOTE | 2020-09-20 12:18 | MM ---
Reason for exam: screening (asymptomatic). Last mammogram was performed 1 year and 6 months ago. History: Patient is postmenopausal. Family history of breast cancer in maternal aunt. Took hormonal contraceptives for 7 years. Physical Findings: A clinical breast exam by your physician is recommended on an annual basis and results should be correlated with mammographic findings. MG Screening Mammo w CAD Bilateral CC and MLO view(s) were taken. Prior study comparison: March 09, 2019, bilateral MG 3d screening mammo w/cad. January 03, 2017, bilateral MG 3d screening mammo w/cad. The breast tissue is heterogeneously dense. This may lower the sensitivity of mammography. Vascular and other scattered calcifications, benign appearing. ASSESSMENT: Benign, BI-RAD 2 RECOMMENDATION: Routine screening mammogram of both breasts in 1 year.
== END | disposition home or self-care (01) ==
LOC: RADMAMWWP 13:50
PROVIDERS: ATTEND Internal Medicine
DX: Z12.31 Encounter for screening mammogram for malignant neoplasm of breast (principal); Z78.0 Asymptomatic menopausal state; Z80.3 Family history of malignant neoplasm of breast
CPT/HCPCS: 77067

== ENCOUNTER → 2021-09-05 | Outpatient (CLI) | payer MEDICARE ==
--- NOTE | 2021-09-05 22:46 | BD ---
EXAMINATION TYPE: Axial Bone Density DATE OF EXAM: 09/05/2021 COMPARISON: 2019 CLINICAL HISTORY: 76 years year old Female. ICD-10 CODE: M85.80 OSTEOPENIA Height: 5'5 Weight: 151 FRAX RISK QUESTIONS: Secondary Osteoporosis: RISK FACTORS HISTORY OF: Surgery to /Hip(right/left)/:total hips When: 20 years ago Postmenopausal woman: y MEDICATIONS: Additional Medications: blood pressure, acid reflux Additional History: EXAM MEASUREMENTS: Bone mineral densitometry was performed using the [employer] [facility]. Bone mineral density as measured about the Lumbar spine is: ----- L1-L4(G/cm2): 1.095 T Score Values are as follows: ----- L1:-1.5 ----- L2: -1.8 ----- L3:-0.1 ----- L4: 0.7 ----- L1-L4: -0.7 Bone mineral density has: Decreased -7.4% since study of: 03/09/2019 Bone mineral density about the L Wrist (g/cm2): 0.537 T Score values are as follows: -----Dist. R+U: -2.5 -----Prox. R+U: -2.0 -----Radius total: -2.3 Bone mineral density has: Increased 7.2% since study of: 03/09/2019 FRAX: The graph provided illustrates a chance for a major osteoporotic fx and a chance for the hips p robability for fx in 10 years time. Na: total velvet hips replacement IMPRESSION: Osteopenia (T Score between -2.5 and -1). There is slightly increased risk of fracture and the patient may be considered for treatment. Re-Screen 2-5 years. NOTE: T-SCORE=SD OF THE YOUNG ADULT MEAN.
== END | disposition home or self-care (01) ==
LOC: RADBDWWP 08:14
PROVIDERS: ATTEND Internal Medicine
DX: M85.89 Other specified disorders of bone density and structure, multiple sites (principal)
CPT/HCPCS: 77080

== ENCOUNTER → 2021-10-15 | Outpatient (CLI) | payer MEDICARE ==
--- NOTE | 2021-10-15 15:04 | CA ---
Stress Echo Report Harper Cat Age: 76 Gender: F : 1945 Exam Date: 10/15/2021 09:22 Exam Location: [place] Stress Ht (in): 65 Wt (lb): 151 Ordering Physician: Referring Physician: YUNG, Debeaker: Dottie Erwin RDCS Technologist Procedure CPT: Indication: ICD-9 Codes: Rhythm: Patient History: HTN, TIA, FM HX, ASTHMA Cardiac Medications: SEE LIST Medications in past 24 hours: Contrast: Stress Results Protocol: [place] Total dose(mL): Exercise Duration (min:sec): 4:[address] Depression (mm): Angina Score: Kim Score: METS: 6.2 Resting HR: 76 Resting BP: 153 / 64 Peak HR: 141 Peak BP: 173 / 58 Max Predicted HR: 144 98 % Max Predicted HR Target HR: 122 Double Product: [id number] Stress Summary: Pt reached target hr, was asymptomatic. BP Response: 173/58 Reason for Termination: Pt reached target. Cardiac Symptoms: No symptoms ECG Analysis Resting ECG: Normal sinus rhythm with borderline ST abnormality Stress ECG: Inferolateral ST segment depression without associated symptoms of angina. Probably a false- positive finding Arrhythmia: No significant arrhythmia Echo Analysis Resting Echo: Normal wall motion and wall thickness of all segments Peak Echo Analysis: Excellent augmentation of left ventricular wall motion wall thickening of all segments suggesting that there is no evidence of stress-induced ischemia MEASUREMENTS (Male/Female) Normal Values CONCLUSIONS Walked on a standard Everett protocol for 4 minutes 40 seconds and achieved a maximal heart rate of 141 bpm. No angina no significant arrhythmia EKG changes suggestive ischemia probable false-positive Limited exercise capacity with a positive stress test with ST segment depression, no anginal symptoms probably false positive stress test Normal stress echocardiogram without evidence of ischemia Dr. Juan Miguel Gonsalez MD (Electronically Signed) Final Date: 15 October 2021 10:18
== END | disposition home or self-care (01) ==
LOC: RADNMMAIN 08:53
PROVIDERS: ATTEND Internal Medicine
DX: I10 Essential (primary) hypertension (principal); Z86.73 Personal history of transient ischemic attack (TIA), and cerebral infarction without residual deficits
CPT/HCPCS: 93351

== ENCOUNTER → 2022-01-25 | Outpatient (CLI) | payer MEDICARE ==
--- NOTE | 2022-01-28 08:36 | MM ---
Reason for Exam: Screening (asymptomatic). Last mammogram was performed 1 year(s) and 4 month(s) ago. Patient History: Menarche at age 12. First Full-Term at age 20. Left ovary removed at age 28. Right ovary removed at age 28. Hysterectomy at age 28. Postmenopausal. Patient used Hormonal Contraceptives for 7 years. Maternal aunt had breast cancer, age 55. Risk Values: Suzette 5 year model risk: 1.6%. NCI Lifetime model risk: 3.2%. Prior Study Comparison: 01/03/2017 Bilateral Screening Mammogram, [facility]. 03/09/2019 Bilateral Screening Mammogram, [facility]. 09/15/2020 Bilateral Screening Mammogram, [facility]. Tissue Density: The breast tissue is heterogeneously dense. This may lower the sensitivity of mammography. Findings: Analyzed By CAD. There are scattered benign-appearing round and vascular desiccation throughout bilateral breasts redemonstrated. There is no suspicious group of microcalcifications or new suspicious mass in either breast. Overall Assessment: Benign, BI-RAD 2 Management: Screening Mammogram of both breasts in 1 year. A clinical breast exam by your physician is recommended on an annual basis and results should be correlated with mammographic findings. Electronically signed and approved by: David Kumar M.D.
== END | disposition home or self-care (01) ==
LOC: RADMAMWWP 07:33
PROVIDERS: ATTEND Internal Medicine
DX: Z12.31 Encounter for screening mammogram for malignant neoplasm of breast (principal); Z78.0 Asymptomatic menopausal state; Z80.3 Family history of malignant neoplasm of breast
CPT/HCPCS: 77063; 77067

== ENCOUNTER → 2023-09-08 | Outpatient (CLI) | payer MEDICARE ==
--- NOTE | 2023-09-08 11:56 | BD ---
EXAMINATION TYPE: Axial Bone Density DATE OF EXAM: 09/08/2023 CLINICAL HISTORY: 78 years old Female. ICD-10 CODE: M85.80 OT DISRD OF BONE DENSITY AND STRUCTURE, UN Height: 65 Weight: 153.9 FRAX RISK QUESTIONS: Alcohol (3 or more units per day): no Family History (Parent hip fracture): no Glucocorticoids (More than 3mos): no (Ex: prednisone, prednisolone, methylprednisolone, dexamethasone, and hydrocortisone). History of Fracture in Adulthood: yes Secondary Osteoporosis: 1. Type 1 Diabetes: no 2. Hyperthyroidism: no 3. Menopause before 45: no 4. Malnutrition: no 5. Chronic liver disease: no Rheumatoid Arthritis: no Current Tobacco Use: no RISK FACTORS HISTORY OF: Surgery to Spine/Hip(right/left)/Wrist (right/left): bilateral hips hips EXAM MEASUREMENTS: Bone mineral densitometry was performed using the [employer] System. Bone mineral density as measured about the Lumbar spine is: ----- L1-L4(G/cm2): 1.141 T Score Values are as follows: ----- L1: -1.2 ----- L2: -1.6 ----- L3: 0.0 ----- L4: 1.3 ----- L1-L4: -0.3 Z Score Values are as follows: ----- L1: 0.5 ----- L2: 0.0 ----- L3: 1.6 ----- L4: 2.9 ----- L1-L4: 1.3 Bone mineral density has: increased 4.2 % since study of: 09.05.2021 Bone mineral density about the L Wrist (g/cm2): 0.506 T Score values are as follows: -----Dist. R+U: -2.6 -----Prox. R+U: -2.5 -----Radius total: -2.8 Z Score values are as follows: -----Dist. R+U: 0.0 -----Prox. R+U: 0.1 -----Radius total: -0.2 Bone mineral density has: decreased -6.1 % since study of: 09.05.2021 IMPRESSION: Osteoporosis (T Score less than -2.5). There is increased fracture risk and therapy is usually indicated based on age. Re-Screen 1-2 years. NOTE: T-SCORE=SD OF THE YOUNG ADULT MEAN.
== END | disposition home or self-care (01) ==
LOC: RADBDWWP 08:25
PROVIDERS: ATTEND Family Medicine
DX: M85.89 Other specified disorders of bone density and structure, multiple sites (principal); M81.0 Age-related osteoporosis without current pathological fracture
CPT/HCPCS: 77080